=== PATIENT | female | born 1980 | race Hispanic/Latino ===

== ENCOUNTER 2017-07-17 22:49 | Emergency (ER) | payer OTHER ==
--- NOTE | 2017-07-18 00:06 | OBHP ---
Datetime: 07/17/2017 23:54 IP Adm Impression: Term, intrauterine ; No Active Labor IP Admit Plan: Observation/Evaluation; Discharge home Admit Comment, IP Provider: Pt reports here today c/o decreased movements, Denies any fall. Denies VB or LOF. PNC with [facility] [place]: None FHR: 140s regular,Category 1 Assessment: IUP at 28weeks NST Reactive Plan: D/C Home F/u with [facility] in 1 week Pelvic Type - PN: Adequate Extremities - PN: Normal Abdomen - PN: Normal Back - PN: Normal Breast - PN: Normal Lungs - PN: Normal Heart - PN: Normal Thyroid - PN: Normal Neurologic - PN: Normal HEENT - PN: Normal General - PN: Normal FHR - Baseline A Provider: 140 Comments, ACOG Physical Exam: Abd: Soft,NT, BS - present Gestation - Est Wks by US: 28.2 EGA AdmitDate IP: 28.3 Vital Signs Provider: Reviewed IP Chief Complaint: Decreased movement NICHD Variability Prov Fetus A: Moderate 6-25bpm NICHD Accel Fetus A IP Provider: [id number] Genitourinary Exam: Normal DTRs - PN: Normal
--- NOTE | 2017-07-18 00:18 | OBHP ---
Datetime: 07/17/2017 23:54 Admit Comment, IP Provider: Pt reports here today c/o decreased movements, Denies any fall. Denies VB or LOF. PNC with [facility] [place]: None FHR: 140s regular,Category 1 Assessment: IUP at 28weeks NST Reactive Plan: D/C Home F/u with [facility] in 1 week EGA AdmitDate IP: 28.3 FHR Category Provider Fetus A: Category I
[2017-07-18 11:18] VITALS: BP 98/52; PULSE 79
== END 2017-07-18 00:20 | disposition home or self-care (01) ==
LOC: H.EROB2 22:49
DX: O36.8130 Decreased fetal movements, third trimester, not applicable or unspecified (principal); Z3A.28 28 weeks gestation of pregnancy